=== PATIENT | male | born 1970 | race Two or more races ===

== ENCOUNTER → 2024-11-30 | Outpatient (CLI) | payer BC, SELFPAY ==
--- NOTE | 2024-11-30 15:13 | XR_ITS ---
Examination: Shoulder,left, 3 views Technique: Shoulder AP internal rotation, AP external rotation, Y view shoulder, 3 views Exam date and time :November 30, 2024 1532 hours INDICATIONS: Left shoulder pain lifting injury one week ago FINDINGS: Moderate osteopenia No shoulder fracture or dislocation Mild to moderate narrowing glenohumeral joint Mild osteoarthritis acromioclavicular joint IMPRESSION: No fracture or shoulder dislocation Mild to moderate narrowing glenohumeral joint
== END | disposition home or self-care (01) ==
LOC: CDIM 14:54
PROVIDERS: PCP Family Medicine; Referring Provider Nurse Practitioner Family; Visit Provider Nurse Practitioner Family
DX: M25.812 Other specified joint disorders, left shoulder (principal)
CPT/HCPCS: 73030

== ENCOUNTER → 2025-02-02 | Outpatient (CLI) | payer BC, SELFPAY ==
[2025-02-02 10:18] LABS: Collection Type, Urine Clean Catch; Squamous Epithelial Cell,Urine 0 /hpf (0-5)
[2025-02-02 10:37] LABS: Basophils % (Auto) 0 % (0-2.5); Eosinophils # (Auto) 0.1 Thou/mm3 (0.0-0.5); Eosinophils % (Auto) 2 % (0-10); Hematocrit 49.8 % (41.0-53.0); Hemoglobin 17.1 g/dL (13.5-16.0); Immature Granulocytes % (Auto) 0 % (0-0); Immature Granulocytes Auto 0.02 Thou/mm3 (0.00-0.00); Lymphocytes # (Auto) 1.8 Thou/mm3 (1.0-4.8); Lymphocytes % (Auto) 27 % (10-50); Mean Corpuscular HGB Conc 34.3 g/dl (31.0-37.0); Mean Corpuscular Hemoglobin 30.5 pg (25.0-35.0); Mean Corpuscular Volume 89 fL (80-100); Monocytes # (Auto) 0.7 Thou/mm3 (0.0-0.8); Monocytes % (Auto) 10 % (0-12); Neutrophils # (Auto) 4.2 Thou/mm3 (1.8-7.7); Neutrophils % (Auto) 62 % (37-80); Nucleated Red Blood Cell % 0 /100 WBC (0); Platelet Count 286 Thou/mm3 (140-440); RDW Standard Deviation 42.1 fL (35.1-43.9); White Blood Count 6.9 Thou/mm3 (3.8-10.6)
[2025-02-02 10:41] LABS: Bilirubin,Urine Negative (Negative); Blood,Urine Trace (Negative); Clarity,Urine Clear (Clear/Hazy); Color,Urine Lt-Yellow (Lt Yel-Yel); Culture Indicated,Urine Not Indicated; Glucose, Urine Negative (Negative); Ketones,Urine Negative (Negative); Leukocyte Esterase,Urine Negative (Negative); Nitrite,Urine Negative (Negative); Protein,Urine Negative (Neg - Trace); RBC,Urine 2 /hpf (0-3); Specific Gravity,Urine 1.017 (1.001-1.035); Urobilinogen,Urine Negative mg/dL (0.0-1.0); WBC,Urine < 1 /hpf (0-5)
[2025-02-02 10:49] LABS: Glucose Estimated Average 100 mg/dL (80-131); Hemoglobin A1C 5.1 % Hgb (4.8-6.0)
[2025-02-02 10:57] LABS: Prostate Specific Antigen 0.37 ng/mL (0-4.00)
[2025-02-02 10:58] LABS: Alanine Aminotransferase 13 U/L (10-49); Albumin, Serum 4.7 gm/dL (3.5-5.0); Albumin/Globulin Ratio 1.5 (1.2-2.2); Alkaline Phosphatase 75 U/L (46-116); Anion Gap 9 (7-16); Aspartate Amino Transferase 17 U/L (0-34); BUN/Creatinine Ratio 12 Ratio (12-20); Blood Urea Nitrogen 12 mg/dL (9-23); Calcium 9.9 mg/dL (8.3-10.6); Calcium (Corrected) 9.9 mg/dL (8.5-10.1); Carbon Dioxide 26.3 mMol/L (20.0-31.0); Cardiac Risk Estimate 6.9 RATIO (4.0-6.7); Chloride 106 mMol/L (98-107); Cholesterol 277 mg/dL (132-200); Globulin 3.2 gm/dL (2.3-3.5); Glucose 92 mg/dL (74-106); HDL Cholesterol 40 mg/dL (40-60); LDL Cholesterol,Calculated 201 mg/dL (0-130); Osmolality,Calculated 280 (275-295); Potassium 4.2 mMol/L (3.4-5.1); Sodium 141 mMol/L (136-145); Thyroid Stimulating Hormone 1.32 uIU/mL (0.55-4.78); Total Protein 7.9 gm/dL (5.7-8.2); Triglycerides 180 mg/dL (30-150); Vitamin B12 894 pg/mL (211-911); Vitamin D 25 Hydroxy Total 63.2 ng/mL (7.3-40.2); eGFR > 60 See Note
== END | disposition home or self-care (01) ==
PROVIDERS: PCP Family Medicine; Referring Provider Orthopaedic Surgery; Visit Provider Orthopaedic Surgery
DX: Z00.00 Encounter for general adult medical examination without abnormal findings (principal); M25.512 Pain in left shoulder; M75.122 Complete rotator cuff tear or rupture of left shoulder, not specified as traumatic; Z12.5 Encounter for screening for malignant neoplasm of prostate
CPT/HCPCS: 36415; 80053; 80061; 81001; 82306; 82607; 83036; 84153; 84443; 85025

== ENCOUNTER → 2025-06-15 | Outpatient (CLI) | payer BC, SELFPAY ==
[2025-06-15 10:46] LABS: Cardiac Risk Estimate 6.6 RATIO (4.0-6.7); Cholesterol 252 mg/dL (132-200); HDL Cholesterol 38 mg/dL (40-60); LDL Cholesterol,Calculated 173 mg/dL (0-130); Triglycerides 204 mg/dL (30-150)
== END | disposition home or self-care (01) ==
LOC: COPL 09:37
PROVIDERS: PCP Family Medicine; Referring Provider Nurse Practitioner Family; Visit Provider Nurse Practitioner Family
DX: E78.2 Mixed hyperlipidemia (principal)
CPT/HCPCS: 36415; 80061

== ENCOUNTER → 2025-06-20 | Outpatient (CLI) | payer BC, SELFPAY ==
--- NOTE | 2025-06-20 10:27 | XR_ITS ---
Examination: Abdomen AP single view Technique: AP portable supine abdomen, single view Exam date and time: June 20, 2025 1032 hours INDICATIONS: Lower abdominal pain beginning several months ago FINDINGS: Abundant stool in the right colon No obstruction No free air No abnormal calcific densities Mild bilateral hip osteoarthritis IMPRESSION: Abundant stool in the right colon
== END | disposition home or self-care (01) ==
LOC: CDIM 10:03
PROVIDERS: PCP Family Medicine; Referring Provider Specialist; Visit Provider Specialist
DX: K59.00 Constipation, unspecified (principal)
CPT/HCPCS: 74018

== ENCOUNTER 2025-07-05 08:01 | Emergency (ER) | payer BC, SELFPAY ==
--- NOTE | 2025-07-05 08:05 | EKG_ITS ---
[facility] Test Date: 2025-07-05 Pat Name: CARMEN SCOTT Department: Room: - Gender: Male Quality Assurance Inspector: : 1970 Requested By: Guanakito Bah (SARA) Order Number: [id number] Reading MD: Guanakito Bah (SALVAGER HELPER) Measurements Intervals [place] Rate: 92 P: 51 [place]: 157 QRS: 10 QRSD: 92 T: 58 QT: 342 QTc: 423 Interpretive Statements SINUS RHYTHM Compared to ECG 04/06/2023 01:12:12 No significant changes /store/S0/[id number]
--- NOTE | 2025-07-05 08:05 | XR_ITS ---
Examination: AP chest single view Technique one AP portable semiupright chest single view Date and time: July 05, 2025 0838 hours INDICATIONS: Chest pain dizziness shortness of breath beginning 2 weeks ago. FINDINGS: Normal heart size. Lungs are clear. Prominent osteopenia IMPRESSION: No active disease
--- NOTE | 2025-07-05 08:06 | EKG_ITS ---
[facility] Test Date: 2025-07-05 Pat Name: CARMEN SCOTT Department: Room: - Gender: Male Marketing Finance Specialist: : 1970 Requested By: Deborah Sharma Order Number: [id number] Reading MD: Deborah Sharma Measurements Intervals [place] Rate: 92 P: 54 [place]: 150 QRS: 13 QRSD: 93 T: 54 QT: 342 QTc: 423 Interpretive Statements SINUS RHYTHM Compared to ECG 04/06/2023 01:12:12 No significant changes /store/S0/[id number]
[2025-07-05 08:08] VITALS: BP 167/106; BP 177/106; PULSE 94; RESP 16; TEMP 36.3; O2SAT 97; BMI 30.2
--- NOTE | 2025-07-05 08:19 | PD.EDCHEST ---
ED Chest Pain RME/HPI General Chief Complaint: Chest Pain Stated Complaint: Tightness in chest, and dizzy, sob Time Seen by Provider: 07/05/25 08:05 Arrival date/time: 07/05/25 08:01 Limitations: no limitations RME / HPI RME / HPI narrative: 55 year old male with history of hyperlipidemia presents to the ED for evaluation of chest tightness that woke him from sleep at 05:30a today. States at about 7:30a noted the chest tightness worsened and accompanied by feeling short of breath with bilateral upper and lower extremity tingling sensation. No known modifying factors at home, prompting ED visit. Patient mentioned yesterday he had experienced upper back tightness that traveled up to his neck with pressure sensation in head that resolved. Denies any recent illness, fevers, chills, cough, abdominal pain, n/v/d, or urinary symptoms. Denies blood in stool, urine, or coughing blood. Patient states he had been evaluated by corporate sales manager Dr. Carreon years ago and had a stress test performed that showed a leaky valve. Though was told it was so small that it would not require intervention. No previous KS. Related Data Home Medications ?Medication ?Instructions ?Recorded ?Confirmed tramadol 50 mg tablet 50 mg PO QID 07/11/18 01/05/21 atorvastatin 40 mg tablet 40 mg PO QDAY 01/05/21 01/05/21 metoprolol tartrate 25 mg tablet 25 mg PO QDAY 01/05/21 01/05/21 Previous Rx's ?Medication ?Instructions ?Recorded cyclobenzaprine 10 mg tablet 10 mg PO HS #10 tabs 01/05/21 hydrocodone 5 mg-acetaminophen 325 1 tab PO Q6H PRN pain #10 tabs 01/05/21 mg tablet ibuprofen 800 mg tablet 800 mg PO Q6H PRN pain #14 tabs 01/05/21 Allergies Allergy/AdvReac Type Severity Reaction Status Date / Time Penicillins Allergy Intermediate Rash Verified 07/05/25 08:04 Review of Systems Review of Systems Systems Reviewed: All systems reviewed, normal except as documented Past Medical History Past Medical History CARDIAC: Positive Hypercholesterolemia and Hypertension MUSCULOSKELETAL: Positive Degenerative Disk Disease Social History SMOKING STATUS: Never smoker ED Exam General Limitations: Present no limitations General appearance: Present alert and in no apparent distress Head Head exam: Present atraumatic and normocephalic Eye Eye exam: Present normal appearance, PERRL and EOMI ENT ENT exam: Present normal exam, normal oropharynx and mucous membranes moist Neck Neck exam: Present normal inspection, full ROM and trachea midline Chest Chest inspection: Present normal inspection and symmetric chest wall rise Respiratory Respiratory exam: Present normal lung sounds bilaterally Cardiovascular Cardiovascular exam: Present regular rate, normal rhythm and normal heart sounds Abdominal Exam Abdominal exam: Present soft and normal bowel sounds Extremities Exam Extremities exam: Present normal inspection and full ROM Neurological Exam Neurological exam: Present alert, oriented X3 and CN II-XII intact Psychiatric Psychiatric exam: Present normal affect and normal mood Skin Skin exam: Present warm, dry, intact and normal color Course Quality Measures none Orders Category Date Time Status Drainlayer NOW Care 07/05/25 08:05 Completed EKG (ED ONLY) *Do not use* NOW Care 07/05/25 08:05 Completed EKG (ED ONLY) *Do not use* NOW Care 07/05/25 08:06 Completed EKG (ED Only) Stat Exams 07/05/25 08:05 Draft EKG (ED Only) Stat Exams 07/05/25 08:06 Draft XR chest 1V portable Stat Exams 07/05/25 08:05 Completed B-Type Natriuretic Peptide Stat Lab 07/05/25 08:25 Completed CBC Stat Lab 07/05/25 08:25 Completed Comprehensive Metabolic Panel Stat Lab 07/05/25 08:25 Completed D-Dimer Stat Lab 07/05/25 12:25 Completed Drug Screen,Urine Stat Lab 07/05/25 09:50 Completed Magnesium Stat Lab 07/05/25 08:25 Completed Partial Thromboplastin Time Stat Lab 07/05/25 08:25 Completed Prothrombin Time with INR Stat Lab 07/05/25 08:25 Completed Troponin I Stat Lab 07/05/25 08:25 Completed Troponin I Stat Lab 07/05/25 12:25 Completed Acetaminophen Tab [Tylenol Tab] Med 07/05/25 11:57 Discontinued 650 mg PO X1 ONE Ringers Lactated 1000 ml [Lactated Ringers] 1,000 ml Med 07/05/25 11:57 Discontinued IV 999 mls/hr Vital Signs Vital signs: Vital Signs Temperature 97.4 F 07/05/25 08:08 Pulse Rate 94 07/05/25 08:08 Respiratory Rate 16 07/05/25 08:08 Blood Pressure 167/106 H 07/05/25 08:08 Pulse Oximetry (%) 97 07/05/25 08:08 Oxygen Delivery Method Room Air 07/05/25 08:08 Pulse ox is 97% on room air which is adequate. Chest Pain [facility] Narrative [facility] Narrative:: Patient is a 55-year-old male is in the emergency room with chest pain. Vital signs and exam as listed. Labs without any acute hematologic or significant metabolic abnormality. Troponin not elevated BNP normal drug screen negative. Chest x-ray unremarkable, EKG performed today at 811 notable for sinus rhythm normal intervals nonspecific T wave changes, not a cardiac cardiac alert. Went to reevaluate patient, patient states that he no longer feels the tightness that he had earlier in the day. His only past medical history is hypertriglyceridemia he is compliant with his medications at home. Had a stress test in the past with his corporate sales manager Dr. Carreon. Stress test was normal. 11:54a Patient reports his chest pressure has improved though is complaining of pressure in his head. Will order delta troponin, IV fluids, and Tylenol. Patient remains clinically stable throughout the emergency department visit. We reviewed all the results, analysis, and treatment plans. Patient is amenable to discharge. Strict return precautions were outlined. Patient was discharged in stable condition. Patient data External records reviewed:: [facility] previous records Clinical information provided by:: patient Social determinants that could affect healthcare access:: none Patient has the following chronic illnesses:: see mdm How is presenting disease/condition affected by chronic disease/condition?: uneffected by Evaluation data The following diagnostics were reviewed and interpreted by me:: lab results, radiology exam(s) and EKG tracing(s) Lab and/or radiology exams considered but not ordered:: none Interpretation Summary: see mdm Medications / Prescriptions Medications or Prescriptions considered but not ordered:: None Medication administrations:: Medication Administration History Discontinued Medications Acetaminophen (Acetaminophen 325 Mg Tablet) 650 mg PO X1 ONE Stop: 07/05/25 11:58 Last Admin: 07/05/25 12:22 Dose: 650 mg Documented By: EVANGELISTA Lactated Ringer's (Lactated Ringers) 1,000 mls @ 999 mls/hr IV .Q1H1M ONE Stop: 07/05/25 12:57 Last Infusion: 07/05/25 13:40 Dose: Infused Documented By: Admin: 07/05/25 12:21 Dose: 999 mls/hr Documented By: FC See above Consultations Consultation(s) initiated? (list below): No Diagnosis Chest Pain Differential Diagnosis: stable angina, unstable angina pectoris, atypical chest pain, st elevation myocardial infarction, costochondritis, chest pain and biliary colic Most likely diagnosis given after review of the tests above:: Chest pain Admission Indicated Admission indicated?: not indicated Admission Request Was there a request for admission?: No Disposition Plan Disposition Plan: Discharge Discharge Attestation Discharge Attestation: The patient and all family members were given an opportunity to ask questions and understood the discharge instructions. Discharge instructions specifically effects, indications for sooner follow up or return to the emergency department, and the expected course of current diagnosis. Patient condition: Stable Discharge Plan Plan Patient Disposition: HOME (Self Care) Prescriptions/Referrals Prescriptions/Med Rec: No Action tramadol 50 mg Tablet 50 mg PO QID atorvastatin 40 mg Tablet 40 mg PO QDAY metoprolol tartrate 25 mg Tablet 25 mg PO QDAY cyclobenzaprine 10 mg tablet 10 mg PO HS Qty: 10 0RF hydrocodone-acetaminophen 5-325 mg tablet 1 tab PO Q6H MDD 4 PRN (Reason: pain) Qty: 10 0RF ibuprofen 800 mg tablet 800 mg PO Q6H PRN (Reason: pain) Qty: 14 0RF Referrals: New Acuña MD [Primary Care Provider, Family Practice] - In 1 week Problem List Clinical Impression: Chest pain Patient/Caregiver Discharge Instructions Education Materials: ED Chest Pain, Uncertain Cause Additional Instructions: I recommend that you follow-up with your corporate sales manager and discuss your workup today. You may benefit from a stress test and outpatient ultrasound of your heart and further evaluation of your chest pain. Your cardiac enzyme was not elevated on 2 separate assessments. Blood test that assesses for possible blood clots in your chest was also normal. Your kidney function and liver function test was normal. Chest x-ray did not show any abnormalities. Your EKG was reassuring. I think is important that you follow-up with your primary care doctor within the next 1 to 2 days. Print Language: Malay Stand Alone Forms: [employer] Award Info., Patient Portal Info Letter
[2025-07-05 08:44] VITALS: PULSE 84
[2025-07-05 08:45] VITALS: BP 163/100; PULSE 81; RESP 20; O2SAT 96
[2025-07-05 08:57] LABS: Basophils # (Auto) 0.0 Thou/mm3 (0.0-0.2); Basophils % (Auto) 1 % (0-2.5); Eosinophils # (Auto) 0.1 Thou/mm3 (0.0-0.5); Eosinophils % (Auto) 2 % (0-10); Hematocrit 45.8 % (41.0-53.0); Hemoglobin 15.5 g/dL (13.5-16.0); Immature Granulocytes Auto 0.03 Thou/mm3 (0.00-0.00); Lymphocytes # (Auto) 2.4 Thou/mm3 (1.0-4.8); Lymphocytes % (Auto) 32 % (10-50); Mean Corpuscular HGB Conc 33.8 g/dl (31.0-37.0); Mean Corpuscular Hemoglobin 31.1 pg (25.0-35.0); Mean Corpuscular Volume 92 fL (80-100); Monocytes # (Auto) 0.9 Thou/mm3 (0.0-0.8); Monocytes % (Auto) 12 % (0-12); Neutrophils # (Auto) 4.2 Thou/mm3 (1.8-7.7); Neutrophils % (Auto) 54 % (37-80); Nucleated Red Blood Cell # 0.00 Thou/mm3 (0.00-0.00); Nucleated Red Blood Cell % 0 /100 WBC (0); Platelet Count 237 Thou/mm3 (140-440); RDW Standard Deviation 43.6 fL (35.1-43.9); Red Blood Count 4.98 Miln/mm3 (4.50-5.90); White Blood Count 7.7 Thou/mm3 (3.8-10.6)
[2025-07-05 09:19] LABS: INR 1.0 (0.9-1.3); Partial Thromboplastin Time 27.9 Seconds (22.0-36.0); Prothrombin Time 11.2 Seconds (9.0-12.2)
[2025-07-05 09:20] LABS: Alanine Aminotransferase 22 U/L (10-49); Albumin, Serum 4.7 gm/dL (3.5-5.0); Albumin/Globulin Ratio 1.6 (1.2-2.2); Alkaline Phosphatase 64 U/L (46-116); Anion Gap 10 (7-16); Aspartate Amino Transferase 23 U/L (0-34); BUN/Creatinine Ratio 17 Ratio (12-20); Bilirubin,Total 0.6 mg/dL (0.3-1.2); Blood Urea Nitrogen 15 mg/dL (9-23); Calcium 9.9 mg/dL (8.3-10.6); Calcium (Corrected) 9.9 mg/dL (8.5-10.1); Carbon Dioxide 26.6 mMol/L (20.0-31.0); Chloride 106 mMol/L (98-107); Creatinine (Component) 0.9 mg/dL (0.6-1.3); Estimated Creatinine Clearance 99.1 mL/min (>60); Globulin 3.0 gm/dL (2.3-3.5); Glucose 91 mg/dL (74-106); Magnesium 1.9 mg/dL (1.6-2.6); Osmolality,Calculated 285 (275-295); Potassium 3.8 mMol/L (3.4-5.1); Sodium 143 mMol/L (136-145); Total Protein 7.7 gm/dL (5.7-8.2); Troponin I < 0.002 ng/mL (0.0-0.045); eGFR > 60 See Note
[2025-07-05 10:16] LABS: Amphetamine/Methamp Scrn,U Negative (Negative); Barbiturate Screen,Urine Negative (Negative); Benzodiazepines Screen,Urine Negative (Negative); Benzoylecgonine Screen, Ur Negative (Negative); Fentanyl Screen,Urine Negative (Negative); Opiate Screen,Urine Negative (Negative); THC Screen,Urine Negative (Negative)
[2025-07-05 10:18] VITALS: BP 146/85; PULSE 73; RESP 16; TEMP 36.8; O2SAT 95
[2025-07-05 10:43] LABS: B-Type Natriuretic Peptide < 20 pg/mL (0-100)
[2025-07-05 12:00] VITALS: BP 142/84; PULSE 70; RESP 14; TEMP 36.7; O2SAT 95
[2025-07-05] MEDS: RINGERS LACTATED 1000 ML 1,000 ML 999 ML IV (12:21)
[2025-07-05] MEDS: ACETAMINOPHEN 325 MG TABLET 650 MG PO (12:22)
[2025-07-05 12:55] LABS: D-Dimer < 250 ng/mL (<600)
[2025-07-05 13:00] LABS: Troponin I < 0.002 ng/mL (0.0-0.045)
[2025-07-05 14:06] VITALS: BP 143/87; PULSE 69; RESP 16; O2SAT 98
== END 2025-07-05 14:08 | disposition home or self-care (01) ==
PROVIDERS: Nurse Practitioner Primary Care; Emergency Provider Emergency Medicine; PCP Family Medicine
DX: R07.89 Other chest pain (principal); I10 Essential (primary) hypertension; E78.00 Pure hypercholesterolemia, unspecified
CPT/HCPCS: 36415; 71045; 80053; 80307; 83735; 83880; 84484; 85025; 85379; 85610; 85730; 93005; 96360; 99284; J7120; A9270